=== PATIENT | male | born 2000 | race African-American/Black ===

== ENCOUNTER 2019-04-08 11:29 | Emergency (ER) | payer OTHER ==
[~2019-04-08] VITALS: Ht 162.6 cm; Wt 63.5 kg
[2019-04-08 11:40] VITALS: TEMP 99.3
[2019-04-08 13:20] VITALS: BP 133/84
== END 2019-04-08 13:20 | disposition home or self-care (01) ==
LOC: ED 11:29
DX: J01.80 Other acute sinusitis (principal); R42 Dizziness and giddiness; R51 Headache; R53.1 Weakness
CPT/HCPCS: 99282